=== PATIENT | female | born 1975 | race Caucasian/White ===

== ENCOUNTER → 2017-11-09 | Outpatient (CLI) | payer BC ==
--- NOTE | 2017-11-09 14:26 | MM ---
Reason for exam: screening (asymptomatic). Baseline mammogram. History: Patient had first child at age 40. Took hormonal contraceptives for 5 years beginning at age 32. Physical Findings: Nurse did not find any significant physical abnormalities on exam. ( nurse gabriella ) MG Screening Mammo w CAD Bilateral CC, MLO, and XCCL view(s) were taken. The breast tissue is extremely dense which could obscure a lesion on mammography. There are indeterminate regional calcifications in the left upper outer middle breast. These results were verbally communicated with the patient and result sheet given to the patient on 11/09/17. ASSESSMENT: Incomplete: need additional imaging evaluation, BI-RAD 0 RECOMMENDATION: Special view mammogram of the left breast.
--- NOTE | 2017-11-09 14:27 | MM ---
Reason for exam: additional evaluation requested from abnormal screening. History: Patient had first child at age 40. Took hormonal contraceptives for 5 years beginning at age 32. Physical Findings: Breast exam preformed at baseline screening. MG Work Up Mamm w CAD LT CC with magnification and LM view(s) were taken of the left breast. The breast tissue is extremely dense which could obscure a lesion on mammography. There are regional fine calcifications in the left breast anterior. These results were verbally communicated with the patient and result sheet given to the patient on 11/09/17. ASSESSMENT: Probably benign, BI-RAD 3 RECOMMENDATION: Follow-up diagnostic mammogram of the left breast in 6 months. Diagnostic mammogram to include magnification views.
== END | disposition home or self-care (01) ==
LOC: RADMAMWWP 09:30
PROVIDERS: ATTEND Obstetrics & Gynecology
DX: Z12.31 Encounter for screening mammogram for malignant neoplasm of breast (principal); R92.8 Other abnormal and inconclusive findings on diagnostic imaging of breast
CPT/HCPCS: 77065; 77067

== ENCOUNTER → 2018-02-17 | Outpatient (CLI) | payer BC ==
[2018-02-17 09:29] LABS: Basophils % (A) 1 %; Eosinophils # (A) 0.1 k/uL (0-0.7); Eosinophils % (A) 2 %; HCT 44.7 % (34.0-46.0); HGB 14.4 gm/dL (11.4-16.0); Lymphocytes # (A) 1.6 k/uL (1.0-4.8); Lymphocytes % (A) 25 %; MCH 29.9 pg (25.0-35.0); MCHC 32.1 g/dL (31.0-37.0); MCV 93.1 fL (80.0-100.0); Mean Platelet Volume 6.6; Monocytes # (A) 0.4 k/uL (0-1.0); Monocytes % (A) 6 %; Neutrophils % (A) 65 %; Platelet Count 384 k/uL (150-450); RDW 12.3 % (11.5-15.5); WBC 6.1 k/uL (3.8-10.6)
[2018-02-17 16:50] LABS: Vitamin D 25 Hydroxy 24.6 ng/mL (30.0-100.0)
[2018-02-17 16:56] LABS: Albumin 4.7 g/dL (3.80-4.90); Albumin/Globulin Ratio 1.74 (1.20-2.10); Anion Gap 7.4 mmol/L (4.00-12.00); Calcium 9.5 mg/dL (8.7-10.3); Carbon Dioxide 25.6 mmol/L (21.6-31.8); Globulin 2.7 g/dL (2.1-3.7); LDL Cholesterol,Calculated 90.4 mg/dL (0.0-131.0); Potassium 4.3 mmol/L (3.5-5.5); Total Bilirubin 0.8 mg/dL (0.2-1.2); Total Protein 7.4 g/dL (6.2-8.2); VLDL Calculation 17.6 mg/dL (5.00-40.00)
== END | disposition home or self-care (01) ==
LOC: LABWHC1 08:02
PROVIDERS: ATTEND Family Medicine
DX: Z00.00 Encounter for general adult medical examination without abnormal findings (principal); E55.9 Vitamin D deficiency, unspecified; J02.9 Acute pharyngitis, unspecified; R53.83 Other fatigue
CPT/HCPCS: 36415; 80053; 80061; 82306; 82607; 84443; 85025

== ENCOUNTER → 2018-07-12 | Outpatient (CLI) | payer BC ==
--- NOTE | 2018-07-13 08:12 | MM ---
Reason for exam: follow-up at short interval from prior study. Last mammogram was performed 8 months ago. History: Patient had first child at age 40. Took hormonal contraceptives for 5 years beginning at age 32. Physical Findings: Nurse did not find any significant physical abnormalities on exam. MG 3D Diag Mammo W/Cad LT CC and MLO view(s) were taken of the left breast. Prior study comparison: November 09, 2017, left breast MG work up mamm w CAD LT. November 09, 2017, bilateral MG screening mammo w CAD. The breast tissue is heterogeneously dense. This may lower the sensitivity of mammography. The questioned medial asymmetric density is unchanged. No persisting abnormality on 3D. These results were verbally communicated with the patient and result sheet given to the patient on 07/12/18. ASSESSMENT: Negative, BI-RAD 1 RECOMMENDATION: Return to routine screening mammogram schedule for both breasts. Back on schedule.
== END | disposition home or self-care (01) ==
LOC: RADMAMWWP 06-21 15:49
PROVIDERS: ATTEND Obstetrics & Gynecology
DX: R92.8 Other abnormal and inconclusive findings on diagnostic imaging of breast (principal)
CPT/HCPCS: 77061; 77065

== ENCOUNTER → 2019-05-04 | Outpatient (CLI) | payer BC ==
[2019-05-04 10:00] LABS: Basophils # (A) 0.1 k/uL (0-0.2); Basophils % (A) 1 %; Eosinophils # (A) 0.1 k/uL (0-0.7); Eosinophils % (A) 2 %; HCT 43.8 % (34.0-46.0); Lymphocytes # (A) 1.6 k/uL (1.0-4.8); Lymphocytes % (A) 29 %; MCH 30.1 pg (25.0-35.0); MCV 94.3 fL (80.0-100.0); Mean Platelet Volume 6.8; Monocytes # (A) 0.3 k/uL (0-1.0); Monocytes % (A) 6 %; Neutrophils # (A) 3.4 k/uL (1.3-7.7); Neutrophils % (A) 60 %; Platelet Count 403 k/uL (150-450); RBC 4.65 m/uL (3.80-5.40); RDW 12.5 % (11.5-15.5); WBC 5.6 k/uL (3.8-10.6)
[2019-05-04 16:43] LABS: African American GFR (CKD) 131.2 (60.0-200.0); Anion Gap 6.4 mmol/L (4.00-12.00); BUN/Creat Ratio 11.67 Ratio (12.00-20.00); Calcium 9.3 mg/dL (8.7-10.3); Carbon Dioxide 29.6 mmol/L (21.6-31.8); Chol/HDL Ratio 2.36; Non-African American GFR(CKD) 113.2 (60.0-200.0); Potassium 4.1 mmol/L (3.5-5.5)
== END | disposition home or self-care (01) ==
LOC: LABWHC1 09:32
PROVIDERS: ATTEND Family Medicine
DX: Z00.00 Encounter for general adult medical examination without abnormal findings (principal); G47.00 Insomnia, unspecified; E55.9 Vitamin D deficiency, unspecified
CPT/HCPCS: 36415; 80048; 80061; 82306; 85025

== ENCOUNTER → 2019-09-23 | Outpatient (CLI) | payer BC ==
--- NOTE | 2019-09-26 10:33 | MM ---
Reason for exam: screening (asymptomatic). Last mammogram was performed 1 year and 2 months ago. History: Patient had first child at age 40. Took hormonal contraceptives for 5 years beginning at age 32. Physical Findings: A clinical breast exam by your physician is recommended on an annual basis and results should be correlated with mammographic findings. MG 3D Screening Mammo W/Cad Bilateral CC and MLO view(s) were taken. Prior study comparison: July 12, 2018, left breast MG 3d diag mammo w/cad LT. November 09, 2017, left breast MG work up mamm w CAD LT. The breast tissue is extremely dense which could obscure a lesion on mammography. ASSESSMENT: Benign, BI-RAD 2 RECOMMENDATION: Routine screening mammogram of both breasts in 1 year.
== END | disposition home or self-care (01) ==
LOC: RADMAMWWP 14:10
PROVIDERS: ATTEND Obstetrics & Gynecology
DX: Z12.31 Encounter for screening mammogram for malignant neoplasm of breast (principal)
CPT/HCPCS: 77063; 77067

== ENCOUNTER → 2020-01-08 | Outpatient (CLI) | payer BC | END | disposition home or self-care (01) | LOC: LABWHC1 12:19 | PROVIDERS: ATTEND Family Medicine | DX: Z20.828 Contact with and (suspected) exposure to other viral communicable diseases (principal) | CPT/HCPCS: U0003; C9803 ==

== ENCOUNTER 2020-05-28 12:06 | Emergency (ER) | payer BC ==
[2020-05-28 12:27] VITALS: RESP 18; TEMP 98
[2020-05-28] MEDS ORDERED: SODIUM CHLORIDE 0.9% 500 ML 500 ML IV STA (13:01)
[2020-05-28] MEDS ORDERED: KETOROLAC 15 MG/ML 1 ML VIAL IVP STA (13:01)
--- NOTE | 2020-05-28 13:09 | ED ---
General Adult HPI - General Chief complaint: Abdominal Pain Stated complaint: Abd pain/inquicker Time Seen by Provider: 05/28/20 12:25 Source: patient, RN notes reviewed, old records reviewed Mode of arrival: ambulatory Limitations: no limitations - History of Present Illness Initial comments: This is a 44-year-old female presents emergency Department with left-sided flank pain. Patient states it started suddenly this morning after she was at work. Patient went to an urgent care they did an x-ray and urine and asked her to come the emergency department. Patient states in route the pain went away but when she arrived the pain came back again. Patient states currently the pain is only mild. Patient stated it made her very nauseated and she did vomit times one. Patient denies any fever chills. Patient denies any back pain. Patient denies any dysuria frequency or hematuria. Patient states he didn't find a facility other institution she was not . - Related Data Home Medications Medication Instructions Recorded Confirmed Acetaminophen Tab [Tylenol Tab] 500 mg PO Q6HR PRN 05/28/20 05/28/20 Previous Rx's Medication Instructions Recorded Ketorolac [Toradol] 10 mg PO Q6HR #15 tab 05/28/20 Tamsulosin [Flomax] 0.4 mg PO DAILY #10 cap 05/28/20 Allergies Allergy/AdvReac Type Severity Reaction Status Date / Time No Known Allergies Allergy Verified 05/28/20 13:49 Review of Systems ROS Statement: Those systems with pertinent positive or pertinent negative responses have been documented in the HPI. ROS Other: All systems not noted in ROS Statement are negative. Past Medical History Past Medical History: No Reported History History of Any Multi-Drug Resistant Organisms: None Reported Past Surgical History: No Surgical Hx Reported Past Anesthesia/Blood Transfusion Reactions: No Reported Reaction Past Psychological History: No Psychological Hx Reported Smoking Status: Never smoker Past Alcohol Use History: None Reported Past Drug Use History: None Reported - Past Family History Father Family Medical History: Hypertension Mother Family Medical History: Hypertension General Exam - General Exam Comments Initial Comments: GENERAL: Patient is well-developed and well-nourished. Patient is nontoxic and well- hydrated and is in mild distress. ENT: Neck is soft and supple. No significant lymphadenopathy is noted. Oropharynx is clear. Moist mucous membranes. Neck has full range of motion without eliciting any pain. EYES: The sclera were anicteric and conjunctiva were pink and moist. Extraocular movements were intact and pupils were equal round and reactive to light. Eyelids were unremarkable. PULMONARY: Unlabored respirations. Good breath sounds bilaterally. No audible rales rhonchi or wheezing was noted. CARDIOVASCULAR: There is a regular rate and rhythm without any murmurs gallops or rubs. ABDOMEN: Soft and nontender with normal bowel sounds. SKIN: Skin is clear with no lesions or rashes and otherwise unremarkable. NEUROLOGIC: Patient is alert and oriented x3. Cranial nerves II through XII are grossly intact. Motor and sensory are also intact. Normal speech, volume and content. Symmetrical smile. MUSCULOSKELETAL: Normal extremities with adequate strength and full range of motion. LYMPHATICS: No significant lymphadenopathy is noted PSYCHIATRIC: Normal psychiatric evaluation. Limitations: no limitations Course Vital Signs 05/28/20 12:24 Temperature 98.0 F Pulse Rate 83 Respiratory 18 Rate Blood Pressure 126/80 O2 Sat by Pulse 100 Oximetry Medical Decision Making - Medical Decision Making CAT scan shows a kidney stone on the left with mild hydronephrosis - Lab Data Result diagrams: 05/28/20 13:08 05/28/20 13:08 Lab Results 05/28/20 05/28/20 Range/Units 13:08 13:08 WBC 12.0 H (3.8-10.6) k/uL RBC 4.45 (3.80-5.40) m/uL Hgb 14.1 (11.4-16.0) gm/dL Hct 41.0 (34.0-46.0) % MCV 92.3 (80.0-100.0) fL MCH 31.7 (25.0-35.0) pg MCHC 34.3 (31.0-37.0) g/dL RDW 12.1 (11.5-15.5) % Plt Count 322 (150-450) k/uL MPV 7.3 Neutrophils % 87 % Lymphocytes % 8 % Monocytes % 3 % Eosinophils % 0 % Basophils % 0 % Neutrophils # 10.5 H (1.3-7.7) k/uL Lymphocytes # 1.0 (1.0-4.8) k/uL Monocytes # 0.4 (0-1.0) k/uL Eosinophils # 0.0 (0-0.7) k/uL Basophils # 0.0 (0-0.2) k/uL Sodium 137 (137-145) mmol/L Potassium 4.3 (3.5-5.1) mmol/L Chloride 100 (98-107) mmol/L Carbon Dioxide 23 (22-30) mmol/L Anion Gap 14 mmol/L BUN 11 (7-17) mg/dL Creatinine 0.61 (0.52-1.04) mg/dL Est GFR (CKD-EPI)AfAm >90 (>60 ml/min/1.73 sqM) Est GFR (CKD-EPI)NonAf >90 (>60 ml/min/1.73 sqM) Glucose 94 (74-99) mg/dL Calcium 9.7 (8.4-10.2) mg/dL Total Bilirubin 0.5 (0.2-1.3) mg/dL AST 20 (14-36) U/L ALT 12 (4-34) U/L Alkaline Phosphatase 53 (38-126) U/L Total Protein 8.4 H (6.3-8.2) g/dL Albumin 5.0 (3.5-5.0) g/dL Amylase 46 (30-110) U/L Lipase 76 (23-300) U/L Disposition Clinical Impression: Hydronephrosis, Kidney stone Disposition: HOME SELF-CARE Condition: Good Prescriptions: Tamsulosin [Flomax] 0.4 mg PO DAILY #10 cap Ketorolac [Toradol] 10 mg PO Q6HR #15 tab Is patient prescribed a controlled substance at d/c from ED?: No Referrals: Brody Melgar [Primary Care Provider] - 1-2 days Time of Disposition: 13:56
[2020-05-28] MEDS ORDERED: HYDROmorphone 0.5 MG/0.5 ML SYRINGE IVP STA (13:20)
[2020-05-28] MEDS ORDERED: ONDANSETRON 4 MG/2 ML VIAL IVP PRN (13:21)
[2020-05-28 13:37] LABS: Basophils % (A) 0 %; Eosinophils % (A) 0 %; HGB 14.1 gm/dL (11.4-16.0); Lymphocytes % (A) 8 %; MCH 31.7 pg (25.0-35.0); MCHC 34.3 g/dL (31.0-37.0); MCV 92.3 fL (80.0-100.0); Mean Platelet Volume 7.3; Monocytes # (A) 0.4 k/uL (0-1.0); Monocytes % (A) 3 %; Neutrophils # (A) 10.5 k/uL (1.3-7.7); Neutrophils % (A) 87 %; Platelet Count 322 k/uL (150-450); RBC 4.45 m/uL (3.80-5.40); RDW 12.1 % (11.5-15.5)
[2020-05-28 13:46] LABS: ALT 12 U/L (4-34); AST 20 U/L (14-36); African American GFR (CKD) >90 (>60 ml/min/1.73 sqM); Alkaline Phosphatase 53 U/L (38-126); Amylase 46 U/L (30-110); Anion Gap 14 mmol/L; Blood Urea Nitrogen 11 mg/dL (7-17); Calcium 9.7 mg/dL (8.4-10.2); Carbon Dioxide 23 mmol/L (22-30); Chloride 100 mmol/L (98-107); Glucose 94 mg/dL (74-99); Lipase 76 U/L (23-300); Non-African American GFR(CKD) >90 (>60 ml/min/1.73 sqM); Potassium 4.3 mmol/L (3.5-5.1); Sodium 137 mmol/L (137-145); Total Bilirubin 0.5 mg/dL (0.2-1.3); Total Protein 8.4 g/dL (6.3-8.2)
--- NOTE | 2020-05-28 13:48 | CT ---
EXAMINATION TYPE: CT abdomen pelvis wo con DATE OF EXAM: 05/28/2020 COMPARISON: None HISTORY: Left flank pain Examination of the solid and hollow viscera is limited given the lack of contrast. FINDINGS: LUNG BASES: No evidence for nodule. No evidence for infiltrate. LIVER/GB: The gallbladder is unremarkable. No space-occupying hepatic lesion. PANCREAS: No pancreatic mass identified. No inflammatory process seen. SPLEEN: No evidence for splenomegaly. No intrasplenic lesions seen. ADRENALS: No adrenal nodules identified. No evidence for thickening. KIDNEYS: No evidence for renal mass. There is mild left-sided hydronephrosis with a 3 mm calculus at the left UVJ which has nearly passed into the urinary bladder. No additional calculi are evident. BOWEL: Appendix has a normal appearance. No evidence of bowel obstruction. No inflammatory process. Lymph nodes: No evidence for adenopathy greater than 1 cm. Abdominal aorta: Atheromatous changes seen. No evidence for aneurysm. Genital organs: No significant abnormality. Other: No significant abnormality. IMPRESSION: There is mild left-sided hydronephrosis with a 3 mm calculus at the left UVJ which has nearly passed into the urinary bladder.
[2020-05-28 13:59] LABS: Amorphous Sediment,Urine Rare /hpf; Appearance,Urine Clear (Clear); Bilirubin,Urine Negative (Negative); Blood,Urine Large (Negative); Color,Urine Yellow; Glucose,Urine (UA) Negative (Negative); Ketones,Urine 2+ (Negative); Leukocyte Esterase,Urine Negative (Negative); Mucus,Urine Occasional /hpf; Nitrite,Urine Negative (Negative); PH, Urine 5.5 (5.0-8.0); Protein,Urine 1+ (Negative); RBC,Urine >182 /hpf (0-5); Specific Gravity,Urine 1.027 (1.001-1.035); Squamous Epithelial Cell,Urine <1 /hpf (0-4); Urobilinogen,Urine <2.0 mg/dL (<2.0); WBC,Urine 6 /hpf (0-5)
[2020-05-28 14:25] VITALS: BP 118/69; PULSE 69
== END 2020-05-28 14:25 | disposition home or self-care (01) ==
LOC: EC 12:06
DX: N13.2 Hydronephrosis with renal and ureteral calculous obstruction (principal)
CPT/HCPCS: 36415; 80053; 82150; 83690; 85025; 81001; 74176; 99284; 96374; 96375; J2405; J1170

== ENCOUNTER → 2020-10-08 | Outpatient (CLI) | payer BC ==
--- NOTE | 2020-10-09 14:27 | MM ---
Reason for exam: screening (asymptomatic). Last mammogram was performed 1 year and 1 month ago. History: Patient had first child at age 40. Took hormonal contraceptives for 5 years beginning at age 32. Physical Findings: A clinical breast exam by your physician is recommended on an annual basis and results should be correlated with mammographic findings. MG 3D Screening Mammo W/Cad Bilateral CC and MLO view(s) were taken. Prior study comparison: September 23, 2019, bilateral MG 3d screening mammo w/cad. July 12, 2018, left breast MG 3d diag mammo w/cad LT. The breast tissue is heterogeneously dense. This may lower the sensitivity of mammography. Indistinct calcifications far posterior upper outer quadrant left breast. This finding is changed when compared with previous exams. ASSESSMENT: Incomplete: need additional imaging evaluation, BI-RAD 0 RECOMMENDATION: Special view mammogram of the left breast. [facility] will attempt to contact patient to return for supplemental views.
== END | disposition home or self-care (01) ==
LOC: RADMAMWWP 10:59
PROVIDERS: ATTEND Obstetrics & Gynecology
DX: Z12.31 Encounter for screening mammogram for malignant neoplasm of breast (principal)
CPT/HCPCS: 77063; 77067

== ENCOUNTER → 2020-10-21 | Outpatient (CLI) | payer BC ==
--- NOTE | 2020-10-21 11:04 | MM ---
Reason for exam: additional evaluation requested from abnormal screening. Last mammogram was performed less than 1 month ago. History: Patient had first child at age 40. Took hormonal contraceptives for 5 years beginning at age 32. Physical Findings: Nurse did not find any significant physical abnormalities on exam. MG 3D Work Up W/Cad LT CC with magnification, LM with magnification, and LM view(s) were taken of the left breast. Prior study comparison: October 08, 2020, bilateral MG 3d screening mammo w/cad. September 23, 2019, bilateral MG 3d screening mammo w/cad. November 09, 2017, bilateral MG screening mammo w CAD. The breast tissue is heterogeneously dense. This may lower the sensitivity of mammography. There are unchanged fine heterogeneous calcifications in the left breast. These results were verbally communicated with the patient and result sheet given to the patient on 10/21/20. ASSESSMENT: Benign, BI-RAD 2 RECOMMENDATION: Return to routine screening mammogram schedule for both breasts.
== END | disposition home or self-care (01) ==
LOC: RADMAMWWP 08:57
PROVIDERS: ATTEND Obstetrics & Gynecology
DX: R92.8 Other abnormal and inconclusive findings on diagnostic imaging of breast (principal)
CPT/HCPCS: 77061; 77065

== ENCOUNTER → 2021-01-16 | Outpatient (CLI) | payer BC ==
[2021-01-16 11:35] LABS: Basophils # (A) 0.07 X 10*3/uL (0.00-0.10); Basophils % (A) 0.9 %; Eosinophils # (A) 0.23 X 10*3/uL (0.04-0.35); Eosinophils % (A) 2.9 %; HCT 41.3 % (37.2-46.3); HGB 13.3 g/dL (12.0-15.0); Lymphocytes # (A) 1.93 X 10*3/uL (0.90-5.00); Lymphocytes % (A) 24.6 %; MCH 30.4 pg (27.0-32.0); MCHC 32.2 g/dL (32.0-37.0); MCV 94.5 fL (80.0-97.0); Mean Platelet Volume 9.8 fL (9.5-12.2); Monocytes # (A) 0.69 X 10*3/uL (0.20-1.00); Monocytes % (A) 8.8 %; Neutrophils # (A) 4.91 X 10*3/uL (1.80-7.70); Neutrophils % (A) 62.4 %; Platelet Count 362 X 10*3/uL (140-440); RBC 4.37 X 10*6/uL (4.10-5.20); RDW 12.6 % (11.5-14.5); WBC 7.86 X 10*3/uL (4.50-10.00)
[2021-01-16 20:49] LABS: African American GFR (CKD) 124.8 (60.0-200.0); Albumin 4.4 g/dL (3.8-4.9); Albumin/Globulin Ratio 1.82 (1.60-3.17); Anion Gap 12.8 mmol/L (4.00-12.00); BUN/Creat Ratio 13.05 Ratio (12.00-20.00); Blood Urea Nitrogen 8.7 mg/dL (9.0-27.0); Carbon Dioxide 23.5 mmol/L (21.6-31.8); Chol/HDL Ratio 2.41 Ratio; Globulin 2.4 g/dL (1.6-3.3); HDL Cholesterol 71.3 mg/dL (40.00-60.00); LDL Cholesterol,Calculated 86.8 mg/dL (0.0-131.0); Non-African American GFR(CKD) 107.7 (60.0-200.0); Potassium 4.5 mmol/L (3.5-5.5); Total Bilirubin 0.2 mg/dL (0.30-1.20); Total Protein 6.7 g/dL (6.2-8.2); Triglycerides 69.7 mg/dL (0.00-149.00); VLDL Calculation 13.94 mg/dL (5.00-40.00)
== END | disposition home or self-care (01) ==
LOC: LABWHC1 08:58
PROVIDERS: ATTEND Family Medicine
DX: Z00.00 Encounter for general adult medical examination without abnormal findings (principal); G47.00 Insomnia, unspecified; E55.9 Vitamin D deficiency, unspecified
CPT/HCPCS: 36415; 80053; 80061; 82306; 85025

== ENCOUNTER → 2021-03-31 | Outpatient (CLI) | payer BC | END | disposition home or self-care (01) | LOC: LABWHC1 11:35 | PROVIDERS: ATTEND Family Medicine | DX: R05.9 Cough, unspecified (principal) | CPT/HCPCS: U0003; C9803 ==

== ENCOUNTER → 2021-10-12 | Outpatient (CLI) | payer BC ==
--- NOTE | 2021-10-13 08:22 | MM ---
Reason for Exam: Screening (asymptomatic). Last screening mammogram was performed 12 month(s) ago. Patient History: Menarche at age 15. First Full-Term at age 40. Late child-bearing (after 30). Patient has history of breast feeding. Hormonal Contraceptives for 5 years from age 32 until age 37. Last menstrual period: 10/11/2021 Risk Values: Qiana 5 year model risk: 1.1%. NCI Lifetime model risk: 13.1%. Prior Study Comparison: 07/12/2018 Left Diagnostic Mammogram, [facility]. 09/23/2019 Bilateral Screening Mammogram, [facility]. 10/08/2020 Bilateral Screening Mammogram, [facility]. 10/21/2020 Left Diagnostic Mammogram, [facility]. Tissue Density: The breast tissue is heterogeneously dense. This may lower the sensitivity of mammography. Findings: Analyzed By CAD. A few scattered benign-appearing round calcifications throughout the bilateral breasts are redemonstrated. There is no suspicious group of microcalcifications or new suspicious mass in either breast. Overall Assessment: Benign, BI-RAD 2 Management: Screening Mammogram of both breasts in 1 year. A clinical breast exam by your physician is recommended on an annual basis and results should be correlated with mammographic findings. Electronically signed and approved by: Ky Martinez M.D.
== END | disposition home or self-care (01) ==
LOC: RADMAMWWP 10:20
PROVIDERS: ATTEND Obstetrics & Gynecology
DX: Z12.31 Encounter for screening mammogram for malignant neoplasm of breast (principal)
CPT/HCPCS: 77063; 77067

== ENCOUNTER → 2022-07-01 | Outpatient (CLI) | payer BC ==
--- NOTE | 2022-07-02 13:05 | CA ---
Transthoracic Echo Report Name: Chau Rosales Age: 46 Gender: F : 1975 Exam Date: 07/01/2022 15:56 Exam Location: [facility] Ht (in): 62 Wt (lb): 110 Ordering Physician: Omar Zimmerman MD Attending/Referring Phys: Omar Zimmerman MD [employer] Lizette Feldman [facility] Procedure CPT: Indications: R00.2 palpitations Cardiac Hx: Technical Quality: Excellent Contrast 1: Total Dose (mL): Contrast 2: Total Dose (mL): MEASUREMENTS (Male / Female) Normal Values 2D ECHO LV Diastolic Diameter PLAX 3.1 cm 4.2 - 5.9 / 3.9 - 5.3 cm LV Systolic Diameter PLAX 2.5 cm IVS Diastolic Thickness 0.9 cm 0.6 - 1.0 / 0.6 - 0.9 cm LVPW Diastolic Thickness 0.9 cm 0.6 - 1.0 / 0.6 - 0.9 cm LV Relative Wall Thickness 0.6 RV Internal Dim ED PLAX 2.8 cm LA Systolic Diameter LX 2.7 cm 3.0 - 4.0 / 2.7 - 3.8 cm LV Diastolic Volume MOD 4C 52.9 cm??? LV Systolic Volume MOD 4C 20.2 cm??? LV Ejection Fraction MOD 4C 61.7 % LV Diastolic Length 4C 7.2 cm LV Systolic Length 4C 5.5 cm LV Diastolic Volume MOD 2C 83.3 cm??? LV Systolic Volume MOD 2C 30.7 cm??? LV Ejection Fraction MOD 2C 63.1 % LV Diastolic Length 2C 7.8 cm LV Systolic Length 2C 5.8 cm LA Volume 32.3 cm??? 18 - 58 / 22 - 52 cm??? M-MODE Aortic Root Diameter MM 2.8 cm MV E Point Septal Separation 0.5 cm AV Cusp Separation MM 1.6 cm DOPPLER AV Peak Velocity 150.0 cm/s AV Peak Gradient 9.0 mmHg MV Area PHT 3.3 cm??? Mitral E Point Velocity 96.0 cm/s Mitral A Point Velocity 57.8 cm/s Mitral E to A Ratio 1.7 MV Deceleration Time 228.9 ms MV E' Velocity 15.0 cm/s Mitral E to MV E' Ratio 6.4 TR Peak Velocity 233.3 cm/s TR Peak Gradient 21.8 mmHg Right Ventricular Systolic Press 26.2 mmHg FINDINGS Left Ventricle Left ventricular ejection fraction is estimated at 55-60 %. Small left ventricular cavity. Left ventricular wall thickness normal. No obvious regional wall motion abnormalities. Right Ventricle Normal right ventricular size and function. Right ventricular systolic pressure within normal limits. Right Atrium Normal right atrial size. Left Atrium Normal left atrial size. Mitral Valve Structurally normal mitral valve. Trace mitral regurgitation. Aortic Valve Trileaflet aortic valve. No aortic valve stenosis or regurgitation. Tricuspid Valve Structurally normal tricuspid valve. Mild tricuspid regurgitation. Pulmonic Valve Structurally normal pulmonic valve. Trace pulmonic regurgitation. Pericardium Normal pericardium. No pericardial effusion. Aorta Normal size aortic root and proximal ascending aorta. CONCLUSIONS Normal biventricular dimension and systolic function Poorly visualized aortic found. Probably trileaflet aortic valve Normal mitral valve leaflets with mild MR only Normal tricuspid valve Previewed by: Dr. Juan Ramon Franco MD (Electronically Signed) Final Date: 02 July 2022 13:04
== END | disposition home or self-care (01) ==
LOC: RADECHMAIN 15:56
PROVIDERS: ATTEND Family Medicine
DX: R00.2 Palpitations (principal)
CPT/HCPCS: 93306

== ENCOUNTER → 2022-10-13 | Outpatient (CLI) | payer BC ==
--- NOTE | 2022-10-14 07:58 | MM ---
Reason for Exam: Screening (asymptomatic). Last screening mammogram was performed 12 month(s) ago. Patient History: Menarche at age 15. First Full-Term at age 40. Late child-bearing (after 30). Patient has history of breast feeding. Hormonal Contraceptives for 5 years from age 32 until age 37. Risk Values: Qiana 5 year model risk: 1.1%. NCI Lifetime model risk: 13.0%. Prior Study Comparison: 10/08/2020 Bilateral Screening Mammogram, [facility]. 10/21/2020 Left Diagnostic Mammogram, [facility]. 10/12/2021 Bilateral MG 3D screening mammo w/cad, [facility]. Tissue Density: The breast tissue is extremely dense which could obscure a lesion on mammography. Findings: Analyzed By CAD. Pattern appears symmetrical and stable. No suspicious groups of microcalcifications, spiculated or lobular masses, architectural distortion or other secondary signs of malignancy are mammographically apparent. Overall Assessment: Benign, BI-RAD 2 Management: Screening Mammogram of both breasts in 1 year. A negative mammogram report should not preclude additional follow up of suspicious palpable abnormalities. Patient should continue monthly self breast exam. A clinical breast exam by your physician is recommended on an annual basis and results should be correlated with mammographic findings. Electronically signed and approved by: Karsten Riley D.O. Radiologis
== END | disposition home or self-care (01) ==
LOC: RADMAMWWP 12:24
PROVIDERS: ATTEND Family Medicine
DX: Z12.31 Encounter for screening mammogram for malignant neoplasm of breast (principal)
CPT/HCPCS: 77063; 77067

== ENCOUNTER → 2023-06-03 | Outpatient (CLI) | payer BC ==
[2023-06-03 09:45] LABS: Appearance,Urine Clear (Clear); Bacteria,Urine Rare /hpf; Bilirubin,Urine Negative (Negative); Blood,Urine Small (Negative); Color,Urine Colorless; Glucose,Urine (UA) Negative (Negative); Ketones,Urine Negative (Negative); Leukocyte Esterase,Urine Negative (Negative); Nitrite,Urine Negative (Negative); Protein,Urine Negative (Negative); RBC,Urine 2 /hpf (0-5); Specific Gravity,Urine 1.012 (1.001-1.035); Squamous Epithelial Cell,Urine 4 /hpf (0-4); Urobilinogen,Urine <2.0 mg/dL (<2.0); WBC,Urine <1 /hpf (0-5)
[2023-06-03 13:23] LABS: Basophils # (A) 0.06 X 10*3/uL (0.00-0.10); Eosinophils # (A) 0.13 X 10*3/uL (0.04-0.35); Eosinophils % (A) 2.2 %; HCT 41.9 % (37.2-46.3); HGB 13.7 g/dL (12.0-15.0); Lymphocytes # (A) 1.65 X 10*3/uL (0.90-5.00); Lymphocytes % (A) 27.6 %; MCH 30.2 pg (27.0-32.0); MCHC 32.7 g/dL (32.0-37.0); MCV 92.5 FL (80.0-97.0); Mean Platelet Volume 9.7 FL (9.5-12.2); Monocytes # (A) 0.49 X 10*3/uL (0.20-1.00); Monocytes % (A) 8.2 %; NRBC Per 100 WBC 0 X 10*3/uL (0.00-0.01); Neutrophils # (A) 3.64 X 10*3/uL (1.80-7.70); Neutrophils % (A) 60.8 %; Platelet Count 396 X 10*3/uL (140-440); RBC 4.53 X 10*6/uL (4.10-5.20); RDW 12.5 % (11.5-14.5); WBC 5.98 X 10*3/uL (4.50-10.00)
[2023-06-03 14:41] LABS: Chol/HDL Ratio 2.45 Ratio
[2023-06-03 14:42] LABS: ALT 14 U/L (8-44); AST 14 U/L (13-35); Albumin 4.5 g/dL (3.8-4.9); Albumin/Globulin Ratio 1.61 Ratio (1.60-3.17); Alkaline Phosphatase 55 U/L (41-126); BUN/Creat Ratio 11.29 Ratio (12.00-20.00); Blood Urea Nitrogen 7.9 mg/dL (9.0-27.0); Calcium 9.6 mg/dL (8.7-10.3); Carbon Dioxide 25.8 mmol/L (21.6-31.8); Chloride 102 mmol/L (96-109); Globulin 2.8 g/dL (1.6-3.3); Glucose 86 mg/dL (70-110); LDL Cholesterol,Calculated 93.7 mg/dL (0.0-131.0); Potassium 5.3 mmol/L (3.5-5.5); Sodium 137 mmol/L (135-145); Total Bilirubin 0.4 mg/dL (0.3-1.2); Total Protein 7.3 g/dL (6.2-8.2)
== END | disposition home or self-care (01) ==
LOC: LABWHC1 08:45
PROVIDERS: ATTEND Family Medicine
DX: Z00.00 Encounter for general adult medical examination without abnormal findings (principal)
CPT/HCPCS: 36415; 80053; 80061; 81001; 82306; 82607; 84443; 85025

== ENCOUNTER → 2023-08-22 | Day surgery (SDC) | payer BC ==
[2023-08-14 16:08] VITALS: BMI 20.5
[~2023-08-22] MED LIST: PROPOFOL 10 MG/ML 20 ML VIAL IV ONE
[2023-08-22 10:19] VITALS: TEMP 98.3
[2023-08-22] MEDS: LIDOCAINE 1% (10MG/ML) FOR IV START INTRADERMA PRN (10:20)
[2023-08-22] MEDS: LACTATED RINGERS 1,000 ML IV SCH (10:20)
--- NOTE | 2023-08-22 11:07 | P.PCN ---
Date of Procedure: 08/22/23 Procedure(s) Performed: BRIEF HISTORY: Patient is a 48-year-old pleasant white female scheduled for an elective colonoscopy as a part of screening for colon cancer. PROCEDURE PERFORMED: Colonoscopy. PREOPERATIVE DIAGNOSIS: Screening for colon cancer. IV sedation per Anesthesia. PROCEDURE: After informed consent was obtained, the patient, was brought into the endoscopy unit. IV sedation was administered by Anesthesia under continuous monitoring. Digital rectal examination was normal. Initially the Olympus CF-160 flexible video colonoscope was then inserted in the rectum, gradually advanced into the cecum without any difficulty. Careful examination was performed as the scope was gradually being withdrawn. Ileocecal valve and the appendiceal orifice were visualized and appeared normal. Prep was excellent. Mucosa of the cecum, ascending colon, transverse colon, descending colon, sigmoid colon, and rectum appeared normal. Retroflexion was performed in the rectum and no lesions were seen. The patient tolerated the procedure well. IMPRESSION: Normal-appearing colon from rectum to cecum with no evidence of colorectal neoplasia. RECOMMENDATIONS: Findings of this examination were discussed with the patient as well as her family. She was advised to have repeat screening colonoscopy in 10 years..
[2023-08-22 11:17] VITALS: RESP 14
[2023-08-22 12:10] VITALS: BP 110/75; PULSE 67
== END ==
LOC: ORWHC2ENDO 09:46
PROVIDERS: ATTEND Internal Medicine Gastroenterology
DX: Z12.11 Encounter for screening for malignant neoplasm of colon (principal); Z98.891 History of uterine scar from previous surgery
CPT/HCPCS: 81025; 45378; J2704

== ENCOUNTER → 2023-10-18 | Outpatient (CLI) | payer BC ==
--- NOTE | 2023-10-26 21:30 | MM ---
Reason for Exam: Screening (asymptomatic). Last screening mammogram was performed 12 month(s) ago. Patient History: Menarche at age 15. First Full-Term at age 40. Late child-bearing (after 30). Patient has history of breast feeding. Hormonal Contraceptives for 5 years from age 32 until age 37. Risk Values: Qiana 5 year model risk: 1.2%. NCI Lifetime model risk: 12.8%. Prior Study Comparison: 10/21/2020 Left Diagnostic Mammogram, [facility]. 10/12/2021 Bilateral MG 3D screening mammo w/cad, [facility]. 10/13/2022 Bilateral MG 3D screening mammo w/cad, [facility]. Tissue Density: The breasts are heterogeneously dense, which may obscure small masses. Findings: Analyzed By CAD. Unchanged bilateral areas of asymmetric density and regional calcifications in the left breast. There is no suspicious group of microcalcifications or new suspicious mass in either breast. Overall Assessment: Benign, BI-RAD 2 Management: Screening Mammogram of both breasts in 1 year. . Patient should continue monthly self-breast exams. A clinical breast exam by your physician is recommended on an annual basis. This exam should not preclude additional follow-up of suspicious palpable abnormalities. Note on Qiana scores and lifetime risk: 1. A Qiana score greater than 3% is considered moderate risk. If this is the case, consider specialist referral to assess eligibility for a risk reducing agent. 2. If overall lifetime risk for the development of breast cancer is 20% or higher, the patient may qualify for future screening with alternating mammogram and breast MRI. Electronically signed and approved by: Denisse Aaron M.D. Radiologist
== END | disposition home or self-care (01) ==
LOC: RADMAMWWP 12:36
PROVIDERS: ATTEND Family Medicine
DX: Z12.31 Encounter for screening mammogram for malignant neoplasm of breast (principal); R92.333 Mammographic heterogeneous density, bilateral breasts
CPT/HCPCS: 77063; 77067

== ENCOUNTER → 2024-10-23 | Outpatient (CLI) | payer BC ==
--- NOTE | 2024-10-24 08:01 | MM ---
Reason for Exam: Screening (asymptomatic). Last screening mammogram was performed 12 month(s) ago. Patient History: Menarche at age 15. First Full-Term at age 40. Late child-bearing (after 30). Patient has history of breast feeding. Hormonal Contraceptives for 5 years from age 32 until age 37. Risk Values: Qiana 5 year model risk: 1.2%. NCI Lifetime model risk: 12.7%. Prior Study Comparison: 10/12/2021 Bilateral MG 3D screening mammo w/cad, [facility]. 10/13/2022 Bilateral MG 3D screening mammo w/cad, [facility]. 10/18/2023 Bilateral MG 3D screening mammo w/cad, [facility]. Tissue Density: The breasts are heterogeneously dense, which may obscure small masses. Findings: Analyzed By CAD. There is no suspicious group of microcalcifications or new suspicious mass in either breast. Benign-appearing calcifications. Overall Assessment: Benign, BI-RAD 2 Management: Screening Mammogram of both breasts in 1 year. . Patient should continue monthly self-breast exams. A clinical breast exam by your physician is recommended on an annual basis. This exam should not preclude additional follow-up of suspicious palpable abnormalities. Note on Qiana scores and lifetime risk: 1. A Qiana score greater than 3% is considered moderate risk. If this is the case, consider specialist referral to assess eligibility for a risk reducing agent. 2. If overall lifetime risk for the development of breast cancer is 20% or higher, the patient may qualify for future screening with alternating mammogram and breast MRI. [facility], , 10/24/2024 7:58 AM. Electronically signed and approved by: Jeremy Osman M.D. Radiologis
== END | disposition home or self-care (01) ==
LOC: RADMAMWWP 14:57
PROVIDERS: ATTEND Family Medicine
DX: Z12.31 Encounter for screening mammogram for malignant neoplasm of breast (principal); R92.333 Mammographic heterogeneous density, bilateral breasts; Z92.0 Personal history of contraception
CPT/HCPCS: 77063; 77067